=== PATIENT | female | born 1945 | race Two or more races ===

== ENCOUNTER → 2019-04-07 | Outpatient (CLI) | payer OTHER ==
[~2019-04-07] MED LIST: COZAAR100 MG; FORTAMET1000 MG; VERAPAMIL ER240 MG
== END | disposition home or self-care (01) ==
LOC: MAMO-SONO 04-06 09:45 → SONOGRAMA 10:45 → MAMO-SONO 11:15
DX: E05.90 Thyrotoxicosis, unspecified without thyrotoxic crisis or storm (principal)

== ENCOUNTER 2019-11-16 07:37 | Outpatient (CLI) | payer OTHER | END 2019-11-16 07:56 | disposition home or self-care (01) | LOC: NUCLEAR 07:37 | DX: R07.89 Other chest pain (principal); I25.89 Other forms of chronic ischemic heart disease; I10 Essential (primary) hypertension; E78.2 Mixed hyperlipidemia | CPT/HCPCS: 78452; 93017; A9500; J1250 ==

== ENCOUNTER 2019-12-14 14:30 | Outpatient (CLI) | payer OTHER | END 2019-12-14 14:33 | disposition home or self-care (01) | LOC: RAD 14:30 | DX: M25.571 Pain in right ankle and joints of right foot (principal) ==

== ENCOUNTER 2020-04-02 14:09 | Outpatient (CLI) | payer OTHER | END 2020-04-02 14:17 | disposition home or self-care (01) | LOC: RAD 14:09 | PROVIDERS: ATTEND Orthopaedic Surgery | DX: M54.5 Low back pain (principal) ==

== ENCOUNTER 2022-06-23 10:54 | Emergency (ER) | payer OTHER ==
[~2022-06-23] VITALS: Ht 167.6 cm; Wt 99.8 kg
[2022-06-23] MEDS ORDERED: CYCLOBENZAPRINE10 MG PO (17:53)
[2022-06-23] MEDS ORDERED: DICLOFENAC POTA50 MG PO (17:53)
== END 2022-06-23 17:58 | disposition home or self-care (01) ==
LOC: ER 10:54
DX: M54.16 Radiculopathy, lumbar region (principal); E11.9 Type 2 diabetes mellitus without complications; Z79.84 Long term (current) use of oral hypoglycemic drugs; I10 Essential (primary) hypertension

== ENCOUNTER 2022-07-06 12:53 | Inpatient (IN) | payer OTHER ==
[~2022-07-06] VITALS: Ht 167.6 cm; Wt 100.7 kg
[~2022-07-06 12:53] MED LIST changes: +CYCLOBENZAPRINE10 MG PO; +DICLOFENAC POTA50 MG PO
--- NOTE | 2022-07-06 13:22 | NUR ---
PTE ALERTA Y ORIENTA POR KETURAH ESFERAS CON BUEN PATRON RESPIRATORIO. VIENE EN SABA POR AMBULANCIA, REFIERE QUE ESTABA EN EL HOGAR CUANDO SE LAISHA Y LE VANNESSA UN SYNCOPE. REFIERE QUE NO LIMA RELAJADO ESFINTERS. SE REALIZA EKG Y SE PRESENTA A , EL MISMO REFIERE UBICARLA EN AREA DE OBSERVACION.
--- NOTE | 2022-07-06 13:46 | NUR ---
PTE ALERTA Y ORIENTADA EN PERSONA. REFIERE SINCOPE EN HOGAR. NIEGA RECIBIR GOLPE EN JUAN J. EVALUADA POR DR BILLY. SE ORIENTA. PTE LLEGA EN AMBULANCIA CANALIZADA EN MANO DERECHA CON 0.9NSS.
[2022-07-06] MEDS ORDERED: TRAMADOL HCL50 MG (13:47)
[2022-07-06] MEDS ORDERED: GABAPENTIN100 M2 (13:47)
[2022-07-06] MEDS ORDERED: LOSARTAN-HCTZ1 EAC1 (13:47)
[2022-07-06] MEDS ORDERED: ATORVASTATIN CA10 MG (13:48)
[2022-07-06] MEDS ORDERED: MELOXICAM7.5 MG (13:48)
[2022-07-06] MEDS ORDERED: INVOKANA100 MG (13:48)
--- NOTE | 2022-07-06 16:36 | NUR ---
PTE ES REEVALUADA POR ,SE ORIEMTA SOBRE ORDEN,SE ORIENTA A PTE A REALIZAR U/C Y SE ENTREGA ENVASE.
--- NOTE | 2022-07-06 17:21 | NUR ---
SE INSERTA CHEUNG BAJO MEDIDAS ASEPTICAS EMMA ORDEN MEDICA.PTE CON EGRESO DE 50ML,ORINA JERAMYO TASHA.
== END 2022-07-08 15:19 | disposition home or self-care (01) | DRG 315 ==
LOC: ER 12:53 → MEDJ 21:09
PROVIDERS: ADMIT Internal Medicine; ATTEND Internal Medicine
PROC: B246ZZZ Ultrasonography of Right and Left Heart (ICD-10-PCS; principal; 2022-07-06)
PROC: BW28ZZZ Computerized Tomography (CT Scan) of Head (ICD-10-PCS; 2022-07-06)
DX: I95.89 Other hypotension (principal); N39.0 Urinary tract infection, site not specified; R55 Syncope and collapse; S00.83XA Contusion of other part of head, initial encounter; E78.49 Other hyperlipidemia; Z20.822 Contact with and (suspected) exposure to COVID-19